=== PATIENT | male | born 1995 | race Caucasian/White ===

== ENCOUNTER 2022-04-18 12:24 | Emergency (ER) | payer OTHER, BC, SELFPAY ==
[2022-04-18 12:42] VITALS: BP 147/87; PULSE 92; RESP 18; TEMP 36.6; O2SAT 99
--- NOTE | 2022-04-18 14:42 | ED.GENADULT ---
HPI - General Adult General Chief complaint: Unspecified Stated complaint: needlestick Time Seen by Provider: 04/18/22 14:42 Source: patient Mode of arrival: ambulatory Limitations: no limitations History of Present Illness HPI narrative: Patient is a 26-year-old male presenting to the emergency department for evaluation after a needlestick injury to his left hand. Patient is a dialysis nurse, a needle was retracted and left uncapped, accidentally puncturing his left palm. Patient denies any current bleeding. Denies pain. Was sent here per protocol from [facility] for her needlestick injury. Patient has a claim number, states that they did receive consent from the patient in order to draw lab work. Related Data Allergies Allergy/AdvReac Type Severity Reaction Status Date / Time No Known Allergies Allergy Unverified 03/26/17 17:15 Review of Systems Review of Systems: CONSTITUTIONAL: Denies fever CARDIOVASCULAR: Denies chest pain RESPIRATORY: Denies cough or dyspnea. GASTROINTESTINAL: Denies abdominal pain SKIN: Denies rash MUSCULOSKELETAL: Denies back pain NEUROLOGIC: Denies headache PMFSH Past Medical History Medical History (Updated 04/18/22 @ 14:59 by Perri Rey MD) Epididymal cyst Surgical History Surgical History (Updated 04/18/22 @ 14:59 by Perri Rey MD) No pertinent past surgical history Social History Social History (Updated 04/18/22 @ 15:00 by Perri Rey MD) Smoking status: Never smoker Alcohol intake: never Substance use: never Additional occupation/education comments: Nurse Gender identity (if verbalized by the patient): Male Exam Narrative: GENERAL: Awake, alert, conversant HEAD: Normocephalic, atraumatic. EYES: PERRLA and EOMI. ENT: Nares clear, no rhinorrhea or epistaxis. Mucous membranes moist. NECK: Supple. CHEST: No respiratory distress, breathing even and non labored HEART: Regular rate, sinus rhythm ABDOMEN:Non distended, non tender EXTREMITIES: Normal range of motion. No edema. SKIN: Warm, dry, no rash. Small puncture wound to the thenar eminence of left palm. No active bleeding, no bruising. NEURO:No focal deficits. Alert and oriented x3 Course Vital Signs Vital signs: Vital Signs Temperature 36.6 C 04/18/22 12:42 Pulse Rate 92 04/18/22 12:42 Respiratory Rate 18 04/18/22 12:42 Blood Pressure 147/87 H 04/18/22 12:42 Pulse Oximetry 99 04/18/22 12:42 Oxygen Delivery Room Air 04/18/22 12:42 Temperature 36.6 C 04/18/22 12:42 Pulse Rate 92 04/18/22 12:42 Respiratory Rate 18 04/18/22 12:42 Blood Pressure 147/87 H 04/18/22 12:42 Pulse Oximetry 99 04/18/22 12:42 Oxygen Delivery Room Air 04/18/22 12:42 Medical Decision Making MDM Narrative Medical decision making narrative: Patient evaluated per protocol for needlestick injury. HIV, hepatitis antibody was negative. Advised on importance of follow-up, repeat labs to be drawn. No postexposure prophylaxis given low risk nature of this and the fact that the patient is also going to have labs drawn. Patient was updated and then discharged home. Vital Signs Vital Signs: Vital Signs Temperature 36.6 C 04/18/22 12:42 Pulse Rate 92 04/18/22 12:42 Respiratory Rate 18 04/18/22 12:42 Blood Pressure 147/87 H 04/18/22 12:42 Pulse Oximetry 99 04/18/22 12:42 Oxygen Delivery Room Air 04/18/22 12:42 Temperature 36.6 C 04/18/22 12:42 Pulse Rate 92 04/18/22 12:42 Respiratory Rate 18 04/18/22 12:42 Blood Pressure 147/87 H 04/18/22 12:42 Pulse Oximetry 99 04/18/22 12:42 Oxygen Delivery Room Air 04/18/22 12:42 Lab Data Labs: Lab Results 04/18/22 04/18/22 Range/Units 13:29 13:29 Hep Bs Antibody Negative Hepatitis C Ab Screen Negative (Negative) HIV 1&2 Ab/P24 Ag 4thGn Negative (Negative) Discharge Plan Discharge Clinical Impression: Accidental needlestick injury with exposu
[2022-04-18 14:43] LABS: HIV 1/2 Ab P24 Ag Result Negative (Negative)
[2022-04-18 14:54] LABS: Hepatitis B Surface Anti Res Negative; Hepatitis C Virus Antibody Negative (Negative)
== END 2022-04-18 15:47 | disposition home or self-care (01) ==
LOC: ANHED 15:13
PROVIDERS: Emergency Provider Emergency Medicine
DX: S61.432A Puncture wound without foreign body of left hand, initial encounter (principal); Z77.21 Contact with and (suspected) exposure to potentially hazardous body fluids; Y93.F9 Activity, other caregiving; W46.1XXA Contact with contaminated hypodermic needle, initial encounter
CPT/HCPCS: 36415; 86703; 86706; 86803; 99283; G0432

== ENCOUNTER 2022-08-01 16:11 | Emergency (ER) | payer BC, SELFPAY ==
[2022-08-01 16:18] VITALS: BP 121/77; PULSE 114; RESP 16; TEMP 37.4; O2SAT 98
--- NOTE | 2022-08-01 16:48 | ED.URI ---
HPI - URI/Sore Throat General Chief Complaint: Upper Respiratory Infection Stated Complaint: sore throat Source: patient and RN notes reviewed History of Present Illness HPI Narrative: 27-year-old male presents urgent care with a sister at side. Patient states he has a sore throat and fever, reaching 101 F, the last 2 days. Patient reports mild nausea but denies any vomiting, diarrhea, abdominal pain. Denies any ear pain, chest pain, shortness of breath. Patient has taken 400 mg of ibuprofen with moderate relief. Some parts of this dictation were generated by voice recognition software and may contain typographical and/or grammatical inaccuracies. Related Data Allergies Allergy/AdvReac Type Severity Reaction Status Date / Time No Known Allergies Allergy Unverified 03/26/17 17:15 Review of Systems Review of Systems: CONSTITUTIONAL: Fever EYES: Denies visual changes, redness, or discharge. ENT: Sore throat CARDIOVASCULAR: Denies chest pain, palpitations, or edema. RESPIRATORY: Denies cough or dyspnea. GASTROINTESTINAL: Mild nausea GENITOURINARY: Denies dysuria or hematuria. SKIN: Denies rash or itching. MUSCULOSKELETAL: Denies back pain, joint pain, or myalgia. NEUROLOGIC: Denies headache, numbness, or weakness. [facility] Past Medical History Medical History (Updated 08/01/22 @ 16:49 by Rosa Almonte APRN) Epididymal cyst Surgical History Surgical History (Updated 04/18/22 @ 14:59 by Perri Rey MD) No pertinent past surgical history Social History Social History (Updated 04/18/22 @ 15:00 by Perri Rey MD) Smoking status: Never smoker Alcohol intake: never Substance use: never Occupation/Education: occupation Additional occupation/education comments: Nurse Gender identity (if verbalized by the patient): Male Comments At the time of my signature, I reviewed and agree with the nursing past medical, surgical, social, and family history. There is no relevant family history pertinent to the patient complaint. Exam Narrative: GENERAL: This is a well-nourished, well-developed patient, in no apparent distress. HEAD: normocephalic, atraumatic. EYES: PERRL. Sclera clear/white. Vision is grossly intact. EARS: External ears normal, auditory canals clear and without drainage, TMs normal without perforation. Hearing grossly intact. NOSE: External nose normal with no obvious nasal discharge, nares without redness, no rhinorrhea. THROAT: Mucous membranes moist, posterior pharynx erythema. No exudate noted.. NECK: Neck supple, non-tender without lymphadenopathy, masses or thyromegaly. CARDIOVASCULAR: Regular rate and rhythm without murmurs, gallops, or rubs. RESPIRATORY: Clear to auscultation. Breath sounds equal bilaterally. No wheezes, rales, or rhonchi. SKIN: warm, intact with no suspicious lesions or rash, good texture and turgor. NEURO: awake, alert, and oriented to person, place and time. There were no obvious focal neurologic abnormalities. Course Course Level of Care: Express Care Visit Vital Signs Vital signs: Vital Signs Temperature 99.3 F 08/01/22 16:18 Pulse Rate 114 H 08/01/22 16:18 Respiratory Rate 16 08/01/22 16:18 Blood Pressure 121/77 08/01/22 16:18 Pulse Oximetry 98 08/01/22 16:18 Oxygen Delivery Room Air 08/01/22 16:18 Temperature 99.3 F 08/01/22 16:18 Pulse Rate 114 H 08/01/22 16:18 Respiratory Rate 16 08/01/22 16:18 Blood Pressure 121/77 08/01/22 16:18 Pulse Oximetry 98 08/01/22 16:18 Oxygen Delivery Room Air 08/01/22 16:18 Reviewed MDM - URI/Sore Throat MDM Narrative Medical decision making narrative: Rapid strep is negative in the office; however we will send to the lab for confirmation; there is a small percentage chance that it can come back positive; if it is, we will call you in 2-3days; and your prescription will be call in to your pharmacy. However, there is NO indication for antibiotic at this time. -Incre
== END 2022-08-01 17:00 | disposition home or self-care (01) ==
PROVIDERS: Emergency Provider Nurse Practitioner Family; PCP Emergency Medicine
DX: J02.0 Streptococcal pharyngitis (principal)
CPT/HCPCS: 87081; 87147; 87880; 99213; G0463